=== PATIENT | female | born 1995 | race Caucasian/White ===

== ENCOUNTER 2018-11-26 16:08 | Emergency (ER) | payer OTHER ==
[~2018-11-26] VITALS: Ht 170.2 cm; Wt 63.5 kg
[2018-11-26 16:20] VITALS: BP_SYST 115
[2018-11-26 17:00] VITALS: BP_SYST 110
== END 2018-11-26 16:36 ==
LOC: SED 16:08
DX: Z02.89 Encounter for other administrative examinations (principal); R03.0 Elevated blood-pressure reading, without diagnosis of hypertension
CPT/HCPCS: 81025; 99283